=== PATIENT | female | born 1955 | race Caucasian/White ===

== ENCOUNTER 2017-09-17 07:01 | Inpatient (IN) | payer OTHER, SELFPAY | END 2017-09-19 11:10 | disposition home or self-care (01) | DRG 690 | PROVIDERS: Admitting Provider Internal Medicine Adolescent Medicine; Emergency Provider Emergency Medicine; Family Provider Family Medicine; Visit Provider Internal Medicine Adolescent Medicine | DX: N39.0 Urinary tract infection, site not specified (principal); G20 Parkinson's disease; B96.1 Klebsiella pneumoniae [K. pneumoniae] as the cause of diseases classified elsewhere; K52.9 Noninfective gastroenteritis and colitis, unspecified; Z79.891 Long term (current) use of opiate analgesic | CPT/HCPCS: 36415; 71010; 74176; 80048; 80053; 81001; 82150; 83690; 85025; 87086; 87088; 87186; 96365; 96367; 99284; J1956; J2405 ==

== ENCOUNTER → 2018-10-04 11:40 | Outpatient (CLI) | payer OTHER, SELFPAY ==
--- NOTE | 2018-10-04 11:57 | XR_ITS ---
XR foot wt bearing LT 3V HISTORY: ITS.REASON: pain ORDERING PHYSICIAN: Lola Shore DPM PATIENT AGE: 63 years COMPARISON: None FINDINGS: No fracture or dislocation. No lytic or blastic change. There is normal mineralization.. The joint spaces are well-preserved. No significant degenerative/arthritic changes. No erosive changes evident. IMPRESSION: Negative, no acute finding
--- NOTE | 2018-10-04 11:57 | XR_ITS ---
XR ankle wt bearing RT min 3V HISTORY: ITS.REASON: pain ORDERING PHYSICIAN: Lola Shore DPM PATIENT AGE: 63 years Comparison: None FINDINGS: No fracture or dislocation. No lytic or blastic change. There is normal mineralization.. The joint spaces are well-preserved. No significant degenerative/arthritic changes. No erosive changes evident. IMPRESSION: Negative ankle, no acute finding
--- NOTE | 2018-10-04 11:57 | XR_ITS ---
XR ankle wt bearing LT min 3V HISTORY: ITS.REASON: pain ORDERING PHYSICIAN: Lola Shore DPM PATIENT AGE: 63 years Comparison: None FINDINGS: No fracture or dislocation. No lytic or blastic change. There is normal mineralization.. The joint spaces are well-preserved. No significant degenerative/arthritic changes. No erosive changes evident. IMPRESSION: Negative ankle, no acute finding
--- NOTE | 2018-10-04 11:57 | XR_ITS ---
XR foot wt bearing RT 3V HISTORY: ] Pain ITS.REASON: pain ORDERING PHYSICIAN: Lola Shore DPM PATIENT AGE: 63 years COMPARISON: None FINDINGS: There is minimal hallux valgus. No fracture or dislocation. There is an os cuboid in noted as well as a mildly prominent spur along the plantar surface of the calcaneus at 9 mm. Minimal calcification is noted along the plantar surface of the spur. No lytic or blastic change. IMPRESSION: Minimal hallux valgus with other nonacute findings as described above
== END ==
PROVIDERS: PCP Family Medicine; Visit Provider Podiatrist
DX: M25.572 Pain in left ankle and joints of left foot (principal); M25.571 Pain in right ankle and joints of right foot
CPT/HCPCS: 73610; 73630

== ENCOUNTER 2018-11-13 22:32 | Observation (INO) ==
[2018-11-13 22:50] LABS: Microscopic, Urine URINE MICROSCOPIC (MICROSCOPIC)
[2018-11-13 22:53] LABS: Basophils # 0.1 K/mm3 (0-0.2); Basophils % 0.6 % (0.1-2.0); Eosinophils # 0.2 K/mm3 (0.0-0.4); Eosinophils % 2.5 % (0.1-12.0); Hematocrit 37.6 % (37.0-47.0); Hemoglobin 12.1 g/dL (12.2-16.2); Lymphocytes # 3.2 K/mm3 (0.7-4.5); Lymphocytes % 38.5 % (10-50); Mean Corpuscular HGB Conc 32.2 g/dL (31.8-35.4); Mean Corpuscular Hemoglobin 28.3 pg (27.0-31.2); Mean Corpuscular Volume 87.8 fl (81-99); Mean Platelet Volume 6.8 fl (7.4-10.4); Monocytes # 0.5 K/mm3 (0.1-1.0); Monocytes % 6.2 % (1.7-9.3); Neutrophils # 4.4 K/mm3 (1.8-7.8); Neutrophils % 52.1 % (37.0-80.0); Platelet Count 376 K/mm3 (142-424); Red Blood Count 4.28 M/mm3 (4.20-5.40); Red Cell Distribution Width 13.8 % (11.5-17.5); White Blood Count 8.4 K/mm3 (4.8-10.8)
[2018-11-13 23:00] LABS: Appearance,Urine CLOUDY (Clear); Bilirubin,Urine Negative (Negative); Blood, Urine 1+ (Negative); Color,Urine YELLOW (Yellow); Glucose,Urine (UA) Negative (Negative); Ketones,Urine Negative (Negative); Leukocyte Esterase,Urine 2+ (Negative); Protein,Urine 2+ (Negative); Urobilinogen,Urine 0.2 EU/dl (0.2)
[2018-11-13 23:06] LABS: Albumin Level 3.7 gm/dL (3.4-5.0); Albumin/Globulin Ratio 1.1 (1.1-1.8); Anion Gap 12.3 mEq/L (5-15); Bilirubin,Total 0.5 mg/dL (0.2-1.0); Calcium 9.5 mg/dL (8.5-10.1); Globulin 3.5 gm/dl (1.3-3.2); Potassium 4.3 mmoL/L (3.5-5.1); Total Protein,Serum 7.2 gm/dL (6.4-8.2)
[2018-11-13 23:08] LABS: Bacteria,Urine 4+ /lpf; WBC,Urine 20-50 #/hpf (0-3)
--- NOTE | 2018-11-13 23:15 | Emergency Department Note ---
ED Disposition Clinical Impression: Acute delirium UTI (urinary tract infection) Qualifiers: Urinary tract infection type: site unspecified Hematuria presence: without hematuria Qualified Code(s): N39.0 - Urinary tract infection, site not specified Disposition: Admitted as Observation Condition on Discharge: Good - Critical Care Critical Care Time: No Attestation: On 11/13/18, the high probability of a clinically significant, sudden or life threatening deterioration of the following system(s) required my full and direct attention, intervention and personal management. The time I documented below is in addition to time spent performing reported procedures but includes the following listed in this critical care notation. Medical Decision Making - Medical Records Medical records reviewed: Yes: I reviewed the patient's medical records. - Earl Inquiry Pt receiving controlled substance: No Vital Signs: 11/13/18 22:33 11/13/18 23:52 Temperature 98.7 F 98.6 F Temperature Source Oral Oral Pulse Rate [Right Radial] 83 88 Respiratory Rate 18 18 Blood Pressure [Right Arm] 147/84 H 127/68 Blood Pressure Mean [Right Arm] 105 87 Blood Pressure Source [Right Arm] Automatic Cuff Blood Pressure Position [Right Arm] Supine 02 Sat by Pulse Oximetry 99 99 Oxygen Delivery Method Nasal Cannula Oxygen Flow Rate (LPM) 2 - Lab Data Lab results reviewed: Yes: I reviewed the patient's lab results. Lab Results 11/13/18 22:30: WBC 8.4, RBC 4.28, Hgb 12.1 L, Hct 37.6, MCV 87.8, MCH 28.3, MCHC 32.2, RDW 13.8, Plt Count 376, MPV 6.8 L, Neut % (Auto) 52.1, Lymph % (Auto) 38.5, [place] % (Auto) 6.2, Eos % (Auto) 2.5, Baso % (Auto) 0.6, Neut # (Auto) 4.4, Lymph # (Auto) 3.2, [place] # (Auto) 0.5, Eos # (Auto) 0.2, Baso # (Auto) 0.1 11/13/18 22:30: Sodium 138, Potassium 4.3, Chloride 99, Carbon Dioxide 31, Anion Gap 12.3, BUN 27 H, Creatinine 1.02, Estimated Creat Clear 74, Estimated GFR 55 L, Est GFR ( Amer) 66, Glucose 116 H, Calcium 9.5, Total Bilirubin 0.5, AST 17, ALT 14, Alkaline Phosphatase 167 H, Total Protein 7.2, Albumin 3.7, Globulin 3.5 H, Albumin/Globulin Ratio 1.1 11/13/18 22:40: Urine Color Yellow, Urine Appearance Cloudy, Urine pH 7.0, Ur Specific [place] 1.020, Urine Protein 2+, Urine Glucose (UA) Negative, Urine Ketones Negative, Urine Blood 1+, Urine Nitrate Positive, Urine Bilirubin Negative, Urine Urobilinogen 0.2, Ur Leukocyte Esterase 2+ A, Urine RBC 10-20, Urine WBC 20-50, Urine Bacteria 4+ Result diagrams: 11/13/18 22:30 11/13/18 22:30 Orders (Tests/Meds): ED MEDICATIONS Generic Name Dose Route Start Last Admin Trade Name Freq PRN Reason Stop Dose Admin Sodium Chloride 1,000 mls @ 999 mls/hr 11/13/18 22:45 11/13/18 22:51 Sod Chlor 0.9% 1000ml Bag IV 11/13/18 23:45 999 mls/hr .Q1H1M RYANNE Administration Ceftriaxone Sodium 1 gm/ 50 mls @ 100 mls/hr 11/14/18 02:45 11/14/18 02:53 Sodium Chloride IV 11/28/18 02:44 100 mls/hr Q24H RYANNE Administration Protocol Sodium Chloride 10 ml 11/13/18 22:45 Saline Flush 10ml Syringe IV 12/13/18 22:44 NEEDED PRN Maintain IV Site ORDERS Category Date Time Status CT cervical spine wo con Stat Cat Scan 11/13/18 22:[address] head/brain wo con Stat Cat Scan 11/13/18 22:44 Taken XR chest AP Stat Exams 11/13/18 22:44 Taken XR pelvis 1-2V Stat Exams 11/13/18 22:44 Taken Lactic Acid Stat Lab 11/14/18 02:50 Received Urinalysis and Microscopic Stat Lab 11/13/18 22:40 Ordered Blood Culture Stat Micro 11/14/18 02:50 Received Urine Culture Stat Micro 11/13/18 22:40 Received - Radiology Data #1 Image(s): Chest, Pelvis Image Reviewed: Yes I reviewed the patient's radiology image Preliminary Findings: No Fracture Seen - CT Data CT Scan: Head, C-Spine Time Received: 03:[address] Reviewed: Yes: I have viewed the radiologist's interpretation Preliminary Findings: No Fracture Seen Fall HPI - General Chief Complaint: Fall Stated Complaint: fall Time Seen by Provider: 11/13/18 22:35 Mode of Arrival: EMS Source of Information: Patient, EMS, Medical Record Limitations: Physical Limitations Description of Symptoms (Recalled from ER Triage Doc. by RN): pt was found in t he floor at [facility] by staff. staff reports that is looked like patient was having a seizure. pt has hx parkinsons. pt is awake and alert, states that she received a breathing treatment for an asthma attack and now she "cant move." ems reports sao2 79% upon arrival to scene but is not 100% on 2lo2 bnc. pt fingers are blue at this time. senior care staff reports that they think patient has a uti but they are awaiting ua results at this time. - History of Present Illness HPI Narrative: pt with fell oob at [facility] with possible sz - pt with confusion at [facility] and reported hypoxia - pt uncertain as to what happened and reported dec movement in ext - she has improved with mov but still is confused MD complaint: fall Onset (ago): hour(s) Fall from: out of bed Fall witnessed: no Place fall occurred: senior care[facility] Loss of consciousness: none Prolonged down time: no Symptoms prior to fall: none Context: tripped/slipped Location of injury: head, neck Severity: moderate Associated symptoms (after fall): denies - Related Data Home Medications Medication Instructions Recorded Confirmed acetaminophen 325 mg capsule 325 mg PO Q4H PRN 10/04/18 11/13/18 albuterol sulfate 0.63 mg/3 mL 0.63 mg INHALATION Q6H PRN ml 10/04/18 11/13/18 solution for nebulization albuterol sulfate HFA 90 2 puff INHALATION Q4H PRN g 10/04/18 11/13/18 mcg/actuation aerosol inhaler ascorbic acid (vitamin C) 500 mg 500 mg PO DAILY cap 10/04/18 11/13/18 capsule ebohosrztraasrn-vrjleuahtczfzzk-EB 10 ml PO Q4-6H PRN ml 10/04/18 11/13/18 2 mg-30 mg-10 mg/5 mL oral syrup bupropion HCl 100 mg tablet 100 mg PO BID 10/04/18 11/13/18 carbidopa 25 mg-levodopa 100 mg 2 tab PO TID tab 10/04/18 11/13/18 tablet cetirizine 10 mg capsule 10 mg PO DAILY 10/04/18 11/13/18 dextromethorphan polistirex ER 30 5 ml PO Q12H ml 10/04/18 11/13/18 mg/5 mL oral susp ext.release 12hr diclofenac 75 mg-misoprostol 200 1 tab PO BID 10/04/18 11/13/18 mcg tablet,immediate,delayed release fluticasone 50 mcg/actuation nasal 2 spray INTRANASAL DAILY 10/04/18 11/13/18 spray,suspension hydrocodone 5 mg-acetaminophen 325 1 tab PO Q4-6H PRN 10/04/18 11/13/18 mg tablet hydrocortisone acetate 25 mg 25 mg OR QD-BID PRN 10/04/18 11/13/18 rectal suppository levothyroxine 75 mcg capsule 75 mcg PO DAILY 10/04/18 11/13/18 loperamide 2 mg capsule 2 mg PO Q4H 10/04/18 11/13/18 meloxicam 7.5 mg tablet 7.5 mg PO DAILY 10/04/18 11/13/18 methyl salicylate 10 %-menthol 3 % 1 patch TOPICAL Q12H 10/04/18 11/13/18 topical patch multivitamin capsule 1 cap PO DAILY 10/04/18 11/13/18 nitrofurantoin 100 mg PO BID 10/04/18 11/13/18 monohydrate/macrocrystals 100 mg capsule omega 5-oxa-xds-fish oil 300 1 cap PO DAILY 10/04/18 11/13/18 mg-1,000 mg capsule,delayed release pantoprazole 40 mg tablet,delayed 40 mg PO DAILY 10/04/18 11/13/18 release pramipexole 0.5 mg tablet 0.5 mg PO TID 10/04/18 11/13/18 simethicone 125 mg capsule 125 mg PO QID 10/04/18 11/13/18 tramadol 50 mg tablet 50 mg PO Q6H 10/04/18 11/13/18 Allergies Allergy/AdvReac Type Severity Reaction Status Date / Time morphine Allergy Intermediate I-HIVES Verified 11/13/18 22:40 latex Allergy Mild Verified 11/13/18 22:40 Sulfa (Sulfonamide Allergy Mild Verified 11/13/18 22:40 Antibiotics) [SULFA (SULFONAMIDE ANTIBIOTICS)] diazepam [From Valium] Allergy Unknown UNKNOWN Verified 11/13/18 22:40 sulfamethoxazole Allergy Unknown Verified 11/13/18 22:40 [From BACTRIM] trimethoprim [From BACTRIM] Allergy Unknown Verified 11/13/18 22:40 VINYL Allergy Unknown UNKNOWN Uncoded 10/04/18 10:20 [facility] History - Hepatitis A Screen Drug use history?: No High risk sexual behaviors?: No History of sexually transmitted infection?: No Currently employed?: No Childcare worker?: No Do you have indoor plumbing?: Yes Do you have electricity?: Yes Attestation statement:: This patient has been screened for Hepatitis A risk factors. I have reviewed the patient's past medical history: Yes Medical History: Reports:: Arrhythmia, Asthma, Gastroesophageal Reflux Disease(GERD), Hypertension, Migraine, Osteoporosis Denies:: Cancer, Diabetes Mellitus Type 1, Diabetes Mellitus Type 2, MRSA Other Medical History: Reports: Arthritis, Hypothyroidism, Osteoporosis Other Surgeries: Yes: Cholecystectomy, , Diagnostic Lap, Hysterectomy- Total Amputation: No Fractures: Yes Comment: Bladder Surgery, back surgery- nerve cut off - Social History Smoking Status: Never smoker Alcohol Intake: never Alcohol Intake Frequency:: other Occupational Status: disabled Housing: assisted living facility - Psychiatric History Expresses thoughts of harming self/others: None Suicide Plan Description: No Plan Family Hx:: Diabetes ROS Obtained: Yes All systems reviewed & no additional complaints - Constitutional Constitutional: Denies fever(s) - Eyes Eyes: Denies change in vision - ENT Ears, Nose, Mouth, and Throat: Denies sore throat - Cardiovascular Cardiovascular: Denies chest pain - Respiratory Respiratory: No cough - Gastrointestinal Gastrointestingal: Denies: abdominal pain - Genitourinary Female Genitourinary: Reports urinary incontinence - Musculoskeletal Musculoskeletal: Denies joint pain - Integumentary/Breasts Skin/Breast: Denies rash - Neurologic Neurologic: Reports as per HPI, Reports confusion, Reports seizure-like activity Physical Exam - General General appearance: alert - Head Head exam: normocephalic - Eye Eye exam: Present: PERRL, EOMI - ENT ENT exam: Present: mucous membranes dry - Neck Neck exam: Present: trachea midline - Respiratory Respiratory exam: Present: normal lung sounds bilaterally. Absent: respiratory distress - Cardiovascular Cardiovascular exam: Present: regular rate, systolic murmur, +S4 - Abdominal Exam Abdominal exam: Present: soft - Extremities Exam Extremities exam: Present: full ROM, normal capillary refill - Neurological Exam Neurological exam: Present: alert, CN II-XII intact. Absent: motor sensory deficit - Psychiatric Psychiatric exam: Present: anxious - Skin Skin exam: Absent: rash
--- NOTE | 2018-11-14 07:14 | H&P/Discharge Summary ---
General - General Admission date:: 11/14/18 Discharge date: 11/13/18 *Admission Date: 11/14/18 *Chief complaint: Found on floor at intermediate *History of present illness: 83-year-old fifth Parkinson's disease was brought to the emergency department after she was found on the floor at the intermediate she resides. Seizure-like activity was apparently witnessed. Patient was hypoxic well. Patient was confused when he was found she was transported to the ER. Apparently a workup is in progress for UTI and culture is pending at the intermediate. Patient was evaluated and felt to be confused and was admitted for survey man. This morning, which is now a few hours after admission, patient is alert and oriented to person place and time. She tells me that she rolled out of her bed at the intermediate accidentally. She was unable to get up. She admits she has been running out of breath and has used an inhaler in the past although getting a breathing treatment by EMS in route to the hospital. He admits to some urine frequency. There have been no fevers. [facility] History I have reviewed the patient's past medical history: Yes Medical History: Reports:: Arrhythmia, Asthma, Gastroesophageal Reflux Disease(GERD), Hypertension, Migraine, Osteoporosis Denies:: Cancer, Diabetes Mellitus Type 1, Diabetes Mellitus Type 2, MRSA *Have you ever received a pneumonia vaccine?: Yes *Have you received a flu vaccine this season?: No Other Medical History: Reports: Arthritis, Hypothyroidism, Osteoporosis Other Surgeries: Yes: Cholecystectomy, , Diagnostic Lap, Hysterectomy- Total Amputation: No Fractures: Yes - *Social History Educational Level: Completed College Smoking Status: Never smoker Alcohol Intake: former Alcohol Intake Frequency:: other *Occupational Status:: disabled Housing: assisted living facility Household Members: other *Travel in the last 8 weeks: None - Psychiatric History Expresses thoughts of harming self/others: None Suicide Plan Description: No Plan Family Hx:: Diabetes Review of Systems - Review of Systems Review of systems:: pertinent systems reviewed and negative unless documented below - *Cardiovascular Denies chest pain - *Respiratory Reports shortness of breath, Denies change in phlegm color - *Gastrointestinal Denies abdominal pain - *Musculoskeletal Reports abnormal walking, Reports joint pain - *Neurologic Reports confusion, Reports seizure-like activity Exam Vital signs and Labs for Last 24 Hours: Temp Pulse Resp BP Pulse Ox 97.9 F 77 17 125/63 95 11/14/18 04:27 11/14/18 04:27 11/14/18 04:27 11/14/18 04:27 11/14/18 04:27 Laboratory Results - last 24 hr 11/13/18 22:30: WBC 8.4, RBC 4.28, Hgb 12.1 L, Hct 37.6, MCV 87.8, MCH 28.3, MCHC 32.2, RDW 13.8, Plt Count 376, MPV 6.8 L, Neut % (Auto) 52.1, Lymph % (Auto) 38.5, [place] % (Auto) 6.2, Eos % (Auto) 2.5, Baso % (Auto) 0.6, Neut # (Auto) 4.4, Lymph # (Auto) 3.2, [place] # (Auto) 0.5, Eos # (Auto) 0.2, Baso # (Auto) 0.1 11/13/18 22:30: Sodium 138, Potassium 4.3, Chloride 99, Carbon Dioxide 31, Anion Gap 12.3, BUN 27 H, Creatinine 1.02, Estimated Creat Clear 74, Estimated GFR 55 L, Est GFR ( Amer) 66, Glucose 116 H, Calcium 9.5, Total Bilirubin 0.5, AST 17, ALT 14, Alkaline Phosphatase 167 H, Total Protein 7.2, Albumin 3.7, Globulin 3.5 H, Albumin/Globulin Ratio 1.1 11/13/18 22:40: Urine Color Yellow, Urine Appearance Cloudy, Urine pH 7.0, Ur Specific [place] 1.020, Urine Protein 2+, Urine Glucose (UA) Negative, Urine Ketones Negative, Urine Blood 1+, Urine Nitrate Positive, Urine Bilirubin Negative, Urine Urobilinogen 0.2, Ur Leukocyte Esterase 2+ A, Urine RBC 10-20, Urine WBC 20-50, Urine Bacteria 4+ 11/14/18 02:50: Lactate 0.7 11/14/18 06:09: Magnesium 2.1 I & O for Last 24 hours: Intake & Output 11/11/18 11/12/18 11/13/18 11/14/18 11:59 11:59 11:59 11:59 Intake Total 1100 / 1100 Output Total 1800 / 1800 Balance -700 / -700 Weight 142 lb 0.913 oz Narrative: Patient awakens easily. She has symmetric facial movements. Oropharynx is moist. Neck without lymphadenopathy. Lungs are clear to auscultation. Heart has a regular rate and rhythm. Abdomen is soft. She has active range of motion in all remedies. Compensation Coordinator strength may be slightly weak on the left although patient has diffuse weakness of all muscle groups tested. Gait was not tested. Skin functions are intact. Hospital Course Hospital Course: Patient was admitted and placed on IV fluids. Was given a dose of antibiotic for suspected UTI. By later in the morning on the day of admission patient was lucid. PT was consulted for evaluation. Patien had widespread muscle waekness but ambulated with walker. She was discharged back to [facility] and should continue PT Results Labs on day of discharge: Labs from last 24 hours 11/14/18 11/14/18 11/13/18 06:09 02:50 22:40 WBC RBC Hgb Hct MCV MCH MCHC RDW Plt Count MPV Neut % (Auto) Lymph % (Auto) [place] % (Auto) Eos % (Auto) Baso % (Auto) Neut # (Auto) Lymph # (Auto) [place] # (Auto) Eos # (Auto) Baso # (Auto) Sodium Potassium Chloride Carbon Dioxide Anion Gap BUN Creatinine Estimated Creat Clear Estimated GFR Est GFR ( Amer) Glucose Lactate 0.7 Calcium Magnesium 2.1 Total Bilirubin AST ALT Alkaline Phosphatase Total Protein Albumin Globulin Albumin/Globulin Ratio Urine Color Yellow Urine Appearance Cloudy Urine pH 7.0 Ur Specific [place] 1.020 Urine Protein 2+ Urine Glucose (UA) Negative Urine Ketones Negative Urine Blood 1+ Urine Nitrate Positive Urine Bilirubin Negative Urine Urobilinogen 0.2 Ur Leukocyte Esterase 2+ A Urine RBC 10-20 Urine WBC 20-50 Urine Bacteria 4+ 11/13/18 11/13/18 22:30 22:30 WBC 8.4 RBC 4.28 Hgb 12.1 L Hct 37.6 MCV 87.8 MCH 28.3 MCHC 32.2 RDW 13.8 Plt Count 376 MPV 6.8 L Neut % (Auto) 52.1 Lymph % (Auto) 38.5 [place] % (Auto) 6.2 Eos % (Auto) 2.5 Baso % (Auto) 0.6 Neut # (Auto) 4.4 Lymph # (Auto) 3.2 [place] # (Auto) 0.5 Eos # (Auto) 0.2 Baso # (Auto) 0.1 Sodium 138 Potassium 4.3 Chloride 99 Carbon Dioxide 31 Anion Gap 12.3 BUN 27 H Creatinine 1.02 Estimated Creat Clear 74 Estimated GFR 55 L Est GFR ( Amer) 66 Glucose 116 H Lactate Calcium 9.5 Magnesium Total Bilirubin 0.5 AST 17 ALT 14 Alkaline Phosphatase 167 H Total Protein 7.2 Albumin 3.7 Globulin 3.5 H Albumin/Globulin Ratio 1.1 Urine Color Urine Appearance Urine pH Ur Specific [place] Urine Protein Urine Glucose (UA) Urine Ketones Urine Blood Urine Nitrate Urine Bilirubin Urine Urobilinogen Ur Leukocyte Esterase Urine RBC Urine WBC Urine Bacteria DS: Diagnosis - Discharge Diagnosis (1) Fall from bed Status: Acute (2) UTI (urinary tract infection) Status: Acute Discharge Medications - Medications for Discharge Home Medication List at Discharge: Continue acetaminophen 325 mg capsule 325 mg PO Q4H PRN PRN Reason: . albuterol sulfate 0.63 mg/3 mL solution for nebulization 0.63 mg INHALATION Q6H PRN ml PRN Reason: . hydrocortisone acetate 25 mg rectal suppository 25 mg [place] QD-BID PRN PRN Reason: . diclofenac 75 mg-misoprostol 200 mcg tablet,immediate,delayed release 1 tab PO BID njkpzcxbfjkixof-xoxtosyqffacbcv-JA 2 mg-30 mg-10 mg/5 mL oral syrup 10 ml PO Q4-6H PRN ml PRN Reason: . bupropion HCl 100 mg tablet 100 mg PO BID carbidopa 25 mg-levodopa 100 mg tablet 2 tab PO TID tab dextromethorphan polistirex ER 30 mg/5 mL oral susp ext.release 12hr 5 ml PO Q12H ml fluticasone 50 mcg/actuation nasal spray,suspension 2 spray INTRANASAL DAILY hydrocodone 5 mg-acetaminophen 325 mg tablet 1 tab PO Q4-6H PRN PRN Reason: . levothyroxine 75 mcg capsule 75 mcg PO DAILY loperamide 2 mg capsule 2 mg PO Q4H meloxicam 7.5 mg tablet 7.5 mg PO DAILY pramipexole 0.5 mg tablet 0.5 mg PO TID multivitamin capsule 1 cap PO DAILY omega 4-tih-qgg-fish oil 300 mg-1,000 mg capsule,delayed release 1 cap PO DAILY pantoprazole 40 mg tablet,delayed release 40 mg PO DAILY albuterol sulfate HFA 90 mcg/actuation aerosol inhaler 2 puff INHALATION Q4H PRN g PRN Reason: . simethicone 125 mg capsule 125 mg PO QID tramadol 50 mg tablet 50 mg PO Q6H cetirizine 10 mg capsule 10 mg PO DAILY ascorbic acid (vitamin C) 500 mg capsule 500 mg PO DAILY cap nitrofurantoin monohydrate/macrocrystals 100 mg capsule 100 mg PO BID methyl salicylate 10 %-menthol 3 % topical patch 1 patch TOPICAL Q12H Disposition Disposition: Xfer SNF
--- NOTE | 2018-11-14 07:19 | Pharmacy Consult Notes ---
[facility] Pharmacy VTE Monitoring - Patient Demographics Admission date: 11/13/18 Report Date: 11/14/18 Time: 07: Allergies/Adverse Reactions: Patient Allergies morphine Allergy (Intermediate, Verified 11/13/18 22:40) I-HIVES latex Allergy (Mild, Verified 11/14/18 07:18) UNKNOWN Sulfa (Sulfonamide Antibiotics) [SULFA (SULFONAMIDE ANTIBIOTICS)] Allergy (Mild, Verified 11/14/18 07:18) UNKNOWN diazepam [From Valium] Allergy (Unknown, Verified 11/13/18 22:40) UNKNOWN sulfamethoxazole [From BACTRIM] Allergy (Unknown, Verified 11/14/18 07:18) UNKNOWN trimethoprim [From BACTRIM] Allergy (Unknown, Verified 11/14/18 07:18) UNKNOWN Height: 1.54 m Weight: 64.436 kg Patient Problems: Current Active Problems UTI (urinary tract infection) (Acute) Acute delirium (Acute) Fall from bed (Acute) - VTE Risk Labs: VTE Related Lab Results Hgb 12.1 g/dL (12.2-16.2) L 11/13/18 22:30 Hct 37.6 % (37.0-47.0) 11/13/18 22:30 Plt Count 376 K/mm3 (142-424) 11/13/18 22:30 BUN 27 mg/dL (7-18) H 11/13/18 22:30 Creatinine 1.02 mg/dL (0.55-1.02) 11/13/18 22:30 Estimated Creat Clear 74 mL/min (50-200) 11/13/18 22:30 Was VTE Risk Assessment Performed: Yes VTE Score: 11 VTE Risk Level: Moderate Risk - Prophylaxis VTE Prophylaxis Ordered?: Yes Types of VTE Prophylaxis: TEDS Knee High Location of Applied Device: Bilateral Lower Extremeties - VTE Diagnosis Confirmed Treatment or plan recommended: Continue Current Treatment
== END 2018-11-14 13:10 ==
LOC: ER 22:32 → 2ND 22:32
PROVIDERS: ADMIT Emergency Medicine; ATTEND Family Medicine
DX: B96.89 Other specified bacterial agents as the cause of diseases classified elsewhere; J45.909 Unspecified asthma, uncomplicated; G20 Parkinson's disease; M81.0 Age-related osteoporosis without current pathological fracture; Z91.040 Latex allergy status; I49.9 Cardiac arrhythmia, unspecified; Z88.8 Allergy status to other drugs, medicaments and biological substances; Z79.899 Other long term (current) drug therapy; N39.0 Urinary tract infection, site not specified; I10 Essential (primary) hypertension; Y92.122 Bedroom in nursing home as the place of occurrence of the external cause; Z88.2 Allergy status to sulfonamides; Z88.6 Allergy status to analgesic agent; K21.9 Gastro-esophageal reflux disease without esophagitis; W06.XXXA Fall from bed, initial encounter; R09.02 Hypoxemia; R41.0 Disorientation, unspecified
CPT/HCPCS: 36415; 70450; 71010; 71045; 72125; 72170; 80053; 81001; 83605; 83735; 85025; 87040; 87086; 87088; 87186; 96365; 96367; 97162; 99285; G0378